=== PATIENT | female | born 1950 | race Caucasian/White ===

== ENCOUNTER 2016-07-30 12:13 | Emergency (ER) | payer MEDICARE, BC ==
[~2016-07-30] VITALS: Ht 144.8 cm; Wt 52.3 kg
[~2016-07-30 12:13] MED LIST: ATENOLOL50 MG PO; BUSPAR DIVIDOSE15 MG PO; CARISOPRODOL350 MG PO; ELAVIL150 MG PO; ELAVIL50 MG PO; HYDROCODONE/APAP; PERCOCET 325 MG1 TA2 PO; PHENERGAN 25 TA25 MG PO; RESTORIL30 MG PO; SOMA 350MG350 MG/TAB PO; TEMAZEPAM; TRIAMTERENE/HCT1 CAP PO; TYLENOL W/COD1 UDTAB PO; XANAX .25M0.25 MG/TA PO; XANAX XR0.5 MG PO; ZOLOFT50 MG PO
[2016-07-30 12:24] VITALS: BP 103/40; TEMP 98.3
[2016-07-30 13:55] VITALS: PULSE 56
[2016-07-31] MEDS ORDERED: XANAX 0.5MG0.5 MG PO (00:38)
[2016-07-31] MEDS ORDERED: NORVASC 10MG10 MG PO (00:39)
[2016-07-31] MEDS ORDERED: TENORMIN 5050 MG/TAB PO (00:39)
[2016-07-31] MEDS ORDERED: LEXAPRO 10MG10 MG PO (00:39)
[2016-07-31] MEDS ORDERED: QUESTRAN4 GM/9 GM PO (00:39)
[2016-07-31] MEDS ORDERED: PRILOSEC 20MG20 MG PO (00:40)
[2016-07-31] MEDS ORDERED: ROXICODONE 55 MG/TAB PO (00:40)
[2016-07-31] MEDS ORDERED: MIRALAX PA17 GM/Dose PO (00:40)
[2016-07-31] MEDS ORDERED: ZANAFLEX 4MG TAB4 MG PO (00:40)
[2016-07-31] MEDS ORDERED: DYAZIDE 25 MG-31 CAP PO (00:41)
[2016-07-31] MEDS ORDERED: DESYREL DIVIDO150 M1 PO (00:41)
[2016-07-31] MEDS ORDERED: MS CONTIN 115 MG/TAB PO (00:42)
[2016-07-31] MEDS ORDERED: LASIX 40MG TABL40 MG PO (10:16)
== END 2016-07-30 13:55 | disposition home or self-care (01) ==
LOC: COL.ER 12:13
DX: G89.29 Other chronic pain (principal); R10.84 Generalized abdominal pain
CPT/HCPCS: J2550; J3010

== ENCOUNTER 2016-07-30 23:31 | Inpatient (IN) | payer MEDICARE, BC ==
[~2016-07-30] VITALS: Ht 152.4 cm; Wt 54.0 kg
[2016-07-31] MEDS ORDERED: XANAX 0.5MG0.5 MG PO (00:38)
[2016-07-31] MEDS ORDERED: NORVASC 10MG10 MG PO (00:39)
[2016-07-31] MEDS ORDERED: LEXAPRO 10MG10 MG PO (00:39)
[2016-07-31] MEDS ORDERED: TENORMIN 5050 MG/TAB PO (00:39)
[2016-07-31] MEDS ORDERED: QUESTRAN4 GM/9 GM PO (00:39)
[2016-07-31] MEDS ORDERED: ZANAFLEX 4MG TAB4 MG PO (00:40)
[2016-07-31] MEDS ORDERED: MIRALAX PA17 GM/Dose PO (00:40)
[2016-07-31] MEDS ORDERED: ROXICODONE 55 MG/TAB PO (00:40)
[2016-07-31] MEDS ORDERED: PRILOSEC 20MG20 MG PO (00:40)
[2016-07-31] MEDS ORDERED: DESYREL DIVIDO150 M1 PO (00:41)
[2016-07-31] MEDS ORDERED: DYAZIDE 25 MG-31 CAP PO (00:41)
[2016-07-31] MEDS ORDERED: MS CONTIN 115 MG/TAB PO (00:42)
[2016-07-31 00:44] LABS: MEAN CELL VOLUME 86 fl (80.0-100.0); MEAN CORPUSCULAR HGB CONC 34 g/dl (33.0-37.0); MEAN PLATELET VOLUME 9.5 fl (7.4-10.4); PLATELET COUNT 91 K/mm3 (130-400); RED BLOOD COUNT 3.41 M/mm3 (4.10-5.30); REDCELL DISTRIBUTION WIDTH-CV 13.8 % (11.5-14.5); WHITE BLOOD COUNT 11.1 K/mm3 (4.8-10.8)
[2016-07-31 00:47] LABS: ADD PATHOLOGY DIFF REVIEW NO; HEMATOCRIT 29.4 % (37.0-47.0); HEMOGLOBIN 10.1 g/dl (12.5-16.0); MEAN CORPUSCULAR HEMOGLOBIN 30 pg (27.0-31.0)
[2016-07-31 00:56] LABS: ADJUSTED CALCIUM 7.4 mg/dL (8.4-10.2); ALBUMIN 4.6 gm/dL (3.5-5.0); BILIRUBIN,TOTAL 0.7 mg/dL (0.0-1.0); CALCIUM 7.9 mg/dL (8.4-10.2); CREATININE, serum 3.38 mg/dL (0.52-1.25); TOTAL PROTEIN 8.9 gm/dL (6.4-8.2)
[2016-07-31 00:59] LABS: POTASSIUM 2.4 mmol/L (3.4-5.0)
[2016-07-31 01:17] LABS: BAND 9 % (0-10); NEUTROPHILS 83 % (42.0-75.2); TOTAL CELLS COUNTED 100
[2016-07-31 01:26] LABS: MAGNESIUM 1.1 mg/dL (1.6-2.3)
[2016-07-31 01:49] LABS: PH 6 (5-8); SQUAMOUS EPITHELIAL 0-2 /hpf; URINE APPEARANCE Clear; URINE BACTERIA None Seen /hpf; URINE BILIRUBIN Negative (NEGATIVE); URINE BLOOD 2+ (NEGATIVE); URINE COLOR Straw; URINE GLUCOSE 3+ (NEGATIVE); URINE KETONE Negative (NEGATIVE); URINE RBC 0-2 /hpf; URINE UROBILINOGEN Negative (NEGATIVE); URINE WBC 0-2 /hpf
[2016-07-31 03:39] VITALS: BP 157/62; PULSE 78; TEMP 97.9
[2016-07-31 07:40] VITALS: BP 161/73; PULSE 79; TEMP 98.8
[2016-07-31] MEDS ORDERED: LASIX 40MG TABL40 MG PO (10:16)
[2016-07-31 11:57] VITALS: BP 156/61; PULSE 64; TEMP 98.3
[2016-07-31 13:19] LABS: BASO % 0.1 % (0.0-2.0); EOS % 0.1 % (0-4.0); GRAN % 88.4 % (42.2-75.2); LYMPH # 0.5 (1.2-3.4); LYMPH % 7.4 % (20.0-51.0); MEAN CELL VOLUME 87 fl (80.0-100.0); MEAN CORPUSCULAR HGB CONC 34 g/dl (33.0-37.0); MEAN PLATELET VOLUME 8.5 fl (7.4-10.4); MONO # 0.2 (0.1-0.6); MONO % 2.8 % (1.7-9.3); PLATELET COUNT 76 K/mm3 (130-400); RED BLOOD COUNT 3.53 M/mm3 (4.10-5.30); REDCELL DISTRIBUTION WIDTH-CV 13.9 % (11.5-14.5); WHITE BLOOD COUNT 6.8 K/mm3 (4.8-10.8)
[2016-07-31 13:20] LABS: HEMATOCRIT 30.8 % (37.0-47.0); HEMOGLOBIN 10.4 g/dl (12.5-16.0); MEAN CORPUSCULAR HEMOGLOBIN 29 pg (27.0-31.0)
[2016-07-31 13:28] LABS: CALCIUM 8.3 mg/dL (8.4-10.2); CREATININE, serum 2.89 mg/dL (0.52-1.25); POTASSIUM 3.4 mmol/L (3.4-5.0)
[2016-07-31 15:53] VITALS: BP 167/86; PULSE 75; TEMP 98.1
[2016-07-31 20:50] VITALS: BP 171/66; PULSE 70; TEMP 98
[2016-08-01 00:29] VITALS: BP 159/54; PULSE 68; TEMP 98
[2016-08-01 04:26] VITALS: BP 100/65; PULSE 88; TEMP 98.8
[2016-08-01 07:58] VITALS: BP 167/50; PULSE 72; TEMP 98.5
[2016-08-01 08:40] LABS: CALCIUM 9.2 mg/dL (8.4-10.2); CREATININE, serum 2.45 mg/dL (0.52-1.25); MAGNESIUM 2.2 mg/dL (1.6-2.3); POTASSIUM 3.8 mmol/L (3.4-5.0)
[2016-08-01 11:14] VITALS: BP 122/53; PULSE 63; TEMP 97.5
[2016-08-01 16:32] VITALS: BP 184/72; PULSE 76; TEMP 97.4
[2016-08-01 20:25] VITALS: BP 98/65; PULSE 89; TEMP 98.8
[2016-08-02] VITALS (11 sets, daily range): BP systolic 98–183; BP diastolic 55–84; PULSE 62–94; TEMP 97–98.9
[2016-08-02 07:28] LABS: MEAN CELL VOLUME 91 fl (80.0-100.0); MEAN CORPUSCULAR HGB CONC 33 g/dl (33.0-37.0); MEAN PLATELET VOLUME 9.4 fl (7.4-10.4); PLATELET COUNT 78 K/mm3 (130-400); RED BLOOD COUNT 2.53 M/mm3 (4.10-5.30); WHITE BLOOD COUNT 8.4 K/mm3 (4.8-10.8)
[2016-08-02 07:32] LABS: CALCIUM 8.9 mg/dL (8.4-10.2); CREATININE, serum 2.07 mg/dL (0.52-1.25); POTASSIUM 3.3 mmol/L (3.4-5.0)
[2016-08-02 07:34] LABS: ADD PATHOLOGY DIFF REVIEW NO; HEMATOCRIT 22.9 % (37.0-47.0); HEMOGLOBIN 7.5 g/dl (12.5-16.0); MEAN CORPUSCULAR HEMOGLOBIN 30 pg (27.0-31.0)
[2016-08-02 08:00] LABS: BAND 4 % (0-10); METAMYELOCYTE 1 % (0-0); NEUTROPHILS 88 % (42.0-75.2); PLATELET ESTIMATE NORMAL (NORMAL); TOTAL CELLS COUNTED 100
[2016-08-02 09:34] LABS: MEAN CELL VOLUME 90 fl (80.0-100.0); MEAN CORPUSCULAR HGB CONC 33 g/dl (33.0-37.0); MEAN PLATELET VOLUME 8.9 fl (7.4-10.4); RED BLOOD COUNT 2.52 M/mm3 (4.10-5.30); REDCELL DISTRIBUTION WIDTH-CV 14.1 % (11.5-14.5); WHITE BLOOD COUNT 8.6 K/mm3 (4.8-10.8)
[2016-08-02 09:39] LABS: CALCIUM 8.9 mg/dL (8.4-10.2); CREATININE, serum 2.06 mg/dL (0.52-1.25); POTASSIUM 3.4 mmol/L (3.4-5.0)
[2016-08-02 09:43] LABS: HEMATOCRIT 22.7 % (37.0-47.0); HEMOGLOBIN 7.5 g/dl (12.5-16.0); MEAN CORPUSCULAR HEMOGLOBIN 30 pg (27.0-31.0); PLATELET COUNT 73 K/mm3 (130-400)
[2016-08-03] VITALS (9 sets, daily range): BP systolic 94–158; BP diastolic 39–92; PULSE 57–94; TEMP 97.4–99
[2016-08-03 08:50] LABS: MEAN CELL VOLUME 89 fl (80.0-100.0); MEAN CORPUSCULAR HGB CONC 33 g/dl (33.0-37.0); MEAN PLATELET VOLUME 9.8 fl (7.4-10.4); RED BLOOD COUNT 2.78 M/mm3 (4.10-5.30); REDCELL DISTRIBUTION WIDTH-CV 14.7 % (11.5-14.5); WHITE BLOOD COUNT 7.6 K/mm3 (4.8-10.8)
[2016-08-03 08:55] LABS: HEMATOCRIT 24.6 % (37.0-47.0); HEMOGLOBIN 8.1 g/dl (12.5-16.0); MEAN CORPUSCULAR HEMOGLOBIN 29 pg (27.0-31.0); PLATELET COUNT 67 K/mm3 (130-400)
[2016-08-03 08:56] LABS: ADD PATHOLOGY DIFF REVIEW NO
[2016-08-03 09:23] LABS: BAND 3 % (0-10); NEUTROPHILS 86 % (42.0-75.2); PLATELET ESTIMATE DECREASED (NORMAL); TOTAL CELLS COUNTED 100
[2016-08-03 09:24] LABS: ANISOCYTOSIS 1+; HYPOCHROMIA 1+
[2016-08-03 09:35] LABS: CALCIUM 8.3 mg/dL (8.4-10.2); CREATININE, serum 2.01 mg/dL (0.52-1.25); MAGNESIUM 1.2 mg/dL (1.6-2.3); POTASSIUM 3.2 mmol/L (3.4-5.0)
[2016-08-04] VITALS (13 sets, daily range): BP systolic 110–174; BP diastolic 48–82; PULSE 60–80; TEMP 97.4–99.1
[2016-08-04 09:25] LABS: MEAN CELL VOLUME 89 fl (80.0-100.0); MEAN CORPUSCULAR HGB CONC 34 g/dl (33.0-37.0); MEAN PLATELET VOLUME 10.2 fl (7.4-10.4); RED BLOOD COUNT 2.09 M/mm3 (4.10-5.30); REDCELL DISTRIBUTION WIDTH-CV 15.2 % (11.5-14.5); WHITE BLOOD COUNT 6.7 K/mm3 (4.8-10.8)
[2016-08-04 09:37] LABS: CALCIUM 7.5 mg/dL (8.4-10.2); CREATININE, serum 2.24 mg/dL (0.52-1.25); HEMATOCRIT 18.5 % (37.0-47.0); HEMOGLOBIN 6.2 g/dl (12.5-16.0); MEAN CORPUSCULAR HEMOGLOBIN 30 pg (27.0-31.0); PLATELET COUNT 64 K/mm3 (130-400); POTASSIUM 3.9 mmol/L (3.4-5.0)
[2016-08-04 09:38] LABS: ADD PATHOLOGY DIFF REVIEW NO
[2016-08-04 09:57] LABS: BAND 2 % (0-10); METAMYELOCYTE 1 % (0-0); MYELOCYTE 1 % (0-0); NEUTROPHILS 93 % (42.0-75.2); PLATELET ESTIMATE DECREASED (NORMAL); TOTAL CELLS COUNTED 100
[2016-08-04 18:26] LABS: HEMOGLOBIN 9.4 g/dl (12.5-16.0)
[2016-08-05 00:26] VITALS: BP 115/75; PULSE 86
[2016-08-05 03:20] VITALS: BP 116/50; BP 145/57; PULSE 63; PULSE 70; TEMP 97.8; TEMP 98.4
[2016-08-05 07:04] LABS: BASO % 0.2 % (0.0-2.0); EOS % 0.3 % (0-4.0); GRAN # 4.8 (1.4-6.5); GRAN % 81.2 % (42.2-75.2); LYMPH # 0.7 (1.2-3.4); LYMPH % 11.8 % (20.0-51.0); MEAN CELL VOLUME 88 fl (80.0-100.0); MEAN CORPUSCULAR HGB CONC 33 g/dl (33.0-37.0); MEAN PLATELET VOLUME 9.6 fl (7.4-10.4); MONO # 0.3 (0.1-0.6); MONO % 5.1 % (1.7-9.3); RED BLOOD COUNT 3.23 M/mm3 (4.10-5.30); REDCELL DISTRIBUTION WIDTH-CV 16.2 % (11.5-14.5); WHITE BLOOD COUNT 5.9 K/mm3 (4.8-10.8)
[2016-08-05 07:08] LABS: HEMATOCRIT 28.3 % (37.0-47.0); HEMOGLOBIN 9.3 g/dl (12.5-16.0); MEAN CORPUSCULAR HEMOGLOBIN 29 pg (27.0-31.0); PLATELET COUNT 62 K/mm3 (130-400)
[2016-08-05 07:24] VITALS: BP 160/94; PULSE 67; TEMP 96.8
[2016-08-05 07:40] LABS: CALCIUM 7.5 mg/dL (8.4-10.2); CREATININE, serum 2.51 mg/dL (0.52-1.25); POTASSIUM 3.3 mmol/L (3.4-5.0)
[2016-08-05 11:30] VITALS: BP 117/55; PULSE 57; TEMP 97.6
[2016-08-05 16:40] VITALS: BP 151/85; PULSE 60; TEMP 99
[2016-08-05 20:03] VITALS: BP 125/89; PULSE 86; TEMP 99.2
[2016-08-05 21:53] LABS: PROT-CREAT RATIO, URINE 1.4 (())
[2016-08-06 00:08] VITALS: BP 127/71; PULSE 55; TEMP 99.3
[2016-08-06 03:20] VITALS: BP 152/58; PULSE 58; TEMP 99
[2016-08-06 07:15] LABS: BASO % 0.2 % (0.0-2.0); EOS # 0.1 (0.0-0.7); EOS % 1.6 % (0-4.0); GRAN # 3.2 (1.4-6.5); GRAN % 75.9 % (42.2-75.2); LYMPH # 0.7 (1.2-3.4); MEAN CELL VOLUME 86 fl (80.0-100.0); MEAN CORPUSCULAR HGB CONC 34 g/dl (33.0-37.0); MEAN PLATELET VOLUME 9.6 fl (7.4-10.4); MONO # 0.2 (0.1-0.6); MONO % 5.4 % (1.7-9.3); RED BLOOD COUNT 2.93 M/mm3 (4.10-5.30); WHITE BLOOD COUNT 4.3 K/mm3 (4.8-10.8)
[2016-08-06 07:17] LABS: HEMATOCRIT 25.2 % (37.0-47.0); HEMOGLOBIN 8.6 g/dl (12.5-16.0); MEAN CORPUSCULAR HEMOGLOBIN 29 pg (27.0-31.0); PLATELET COUNT 59 K/mm3 (130-400)
[2016-08-06 07:27] LABS: CALCIUM 6.7 mg/dL (8.4-10.2); CREATININE, serum 2.2 mg/dL (0.52-1.25)
[2016-08-06 07:30] VITALS: BP 156/73; PULSE 63; TEMP 99.1
[2016-08-06 08:02] LABS: POTASSIUM 2.9 mmol/L (3.4-5.0)
[2016-08-06 12:18] VITALS: BP 149/70; PULSE 57; TEMP 98.8
[2016-08-06 15:35] VITALS: BP 119/81; PULSE 64; TEMP 99.9
[2016-08-06 19:32] VITALS: BP 176/77; PULSE 66; TEMP 99.5
[2016-08-07 00:07] VITALS: BP 134/50; PULSE 75; TEMP 98.7
[2016-08-07 04:42] VITALS: BP 179/73; PULSE 63; TEMP 99.5
[2016-08-07 07:30] VITALS: BP 165/62; PULSE 64; TEMP 99.7
[2016-08-07 08:15] LABS: EOS # 0.1 (0.0-0.7); EOS % 2.3 % (0-4.0); GRAN # 3.3 (1.4-6.5); GRAN % 76.9 % (42.2-75.2); LYMPH # 0.6 (1.2-3.4); LYMPH % 14.7 % (20.0-51.0); MEAN CELL VOLUME 88 fl (80.0-100.0); MEAN CORPUSCULAR HGB CONC 33 g/dl (33.0-37.0); MEAN PLATELET VOLUME 9.8 fl (7.4-10.4); MONO # 0.2 (0.1-0.6); MONO % 5.4 % (1.7-9.3); RED BLOOD COUNT 2.97 M/mm3 (4.10-5.30); REDCELL DISTRIBUTION WIDTH-CV 16.6 % (11.5-14.5); WHITE BLOOD COUNT 4.3 K/mm3 (4.8-10.8)
[2016-08-07 08:18] LABS: HEMATOCRIT 26.1 % (37.0-47.0); HEMOGLOBIN 8.7 g/dl (12.5-16.0); MEAN CORPUSCULAR HEMOGLOBIN 29 pg (27.0-31.0); PLATELET COUNT 69 K/mm3 (130-400)
[2016-08-07 08:19] LABS: CALCIUM 6.1 mg/dL (8.4-10.2); CREATININE, serum 2.16 mg/dL (0.52-1.25); POTASSIUM 3.6 mmol/L (3.4-5.0)
[2016-08-07 12:25] VITALS: BP 116/65; PULSE 51; TEMP 98.4
[2016-08-07 16:10] VITALS: BP 140/65; PULSE 64; TEMP 97.3
[2016-08-07 21:34] VITALS: BP 90/50; PULSE 53; TEMP 98.9
[2016-08-08] VITALS (7 sets, daily range): BP systolic 87–168; BP diastolic 48–74; PULSE 58–117; TEMP 97.8–99.6
[2016-08-08 08:52] LABS: CREATININE, serum 2.19 mg/dL (0.52-1.25); MAGNESIUM 1.3 mg/dL (1.6-2.3); POTASSIUM 3.2 mmol/L (3.4-5.0)
[2016-08-09 01:47] VITALS: BP 94/52; PULSE 56; TEMP 97.7
[2016-08-09 05:45] VITALS: BP 131/58; PULSE 57; TEMP 98.6
[2016-08-09 07:46] VITALS: BP 155/65; PULSE 66; TEMP 98.4
[2016-08-09 08:48] LABS: CALCIUM 6.2 mg/dL (8.4-10.2); CREATININE, serum 2.19 mg/dL (0.52-1.25); POTASSIUM 3.1 mmol/L (3.4-5.0)
[2016-08-09 12:03] VITALS: BP 124/45; PULSE 54; TEMP 98.4
[2016-08-09] MEDS ORDERED: FLAGYL 250250 MG/TAB PO (13:29)
[2016-08-09] MEDS ORDERED: OYSCO 500500 M1 PO (13:33)
[2016-08-09] MEDS ORDERED: NATURE'S BLEN5000 IU PO (13:33)
[2016-08-09] MEDS ORDERED: OXYCONTIN 10MG10 MG PO (13:34)
[2016-08-09] MEDS ORDERED: K-DUR 10 MEQ T10 MEQ PO (13:38)
[2016-08-09 15:46] VITALS: BP 110/57; PULSE 60; TEMP 98
== END 2016-08-09 17:13 | disposition home or self-care (01) | DRG 372 ==
LOC: COL.ER 23:31 → MEDICAL 07-31 02:53
PROVIDERS: Family Medicine; Internal Medicine; Internal Medicine Gastroenterology; Physician Assistant
PROC: 0DJD8ZZ Inspection of Lower Intestinal Tract, Via Natural or Artificial Opening Endoscopic (ICD-10-PCS; principal; 2016-08-02 16:00)
PROC: 0DJ08ZZ Inspection of Upper Intestinal Tract, Via Natural or Artificial Opening Endoscopic (ICD-10-PCS; 2016-08-02 16:00)
DX: A04.7 Enterocolitis due to Clostridium difficile (principal); N18.4 Chronic kidney disease, stage 4 (severe); N17.9 Acute kidney failure, unspecified; E87.0 Hyperosmolality and hypernatremia; E87.2 Acidosis; D62 Acute posthemorrhagic anemia; K76.6 Portal hypertension; K92.1 Melena; E87.6 Hypokalemia; E83.42 Hypomagnesemia; I12.9 Hypertensive chronic kidney disease with stage 1 through stage 4 chronic kidney disease, or unspecified chronic kidney disease; E11.65 Type 2 diabetes mellitus with hyperglycemia; E11.22 Type 2 diabetes mellitus with diabetic chronic kidney disease; F41.8 Other specified anxiety disorders; G89.29 Other chronic pain; K75.81 Nonalcoholic steatohepatitis (NASH); K70.31 Alcoholic cirrhosis of liver with ascites; D69.6 Thrombocytopenia, unspecified
CPT/HCPCS: 99223-AI; 99232-AI; 99233-AI; C9113; J0595; J1170; J1815; J2060; J2250; J2405; J2550; J3010; J3475; J3480; J7030; J7040; J7050; J7070; P9016

== ENCOUNTER 2016-08-15 17:32 | Inpatient (IN) | payer MEDICARE, BC ==
[~2016-08-15] VITALS: Ht 144.8 cm; Wt 55.5 kg
[~2016-08-15 17:32] MED LIST changes: +DESYREL DIVIDO150 M1 PO; +DYAZIDE 25 MG-31 CAP PO; +FLAGYL 250250 MG/TAB PO; +K-DUR 10 MEQ T10 MEQ PO; +LASIX 40MG TABL40 MG PO; +LEXAPRO 10MG10 MG PO; +MIRALAX PA17 GM/Dose PO; +MS CONTIN 115 MG/TAB PO; +NATURE'S BLEN5000 IU PO; +NORVASC 10MG10 MG PO; +OXYCONTIN 10MG10 MG PO; +OYSCO 500500 M1 PO; +PRILOSEC 20MG20 MG PO; +QUESTRAN4 GM/9 GM PO; +ROXICODONE 55 MG/TAB PO; +TENORMIN 5050 MG/TAB PO; +XANAX 0.5MG0.5 MG PO; +ZANAFLEX 4MG TAB4 MG PO
[2016-08-15 18:50] LABS: BASO % 0.3 % (0.0-2.0); EOS % 0.4 % (0-4.0); GRAN # 8.2 (1.4-6.5); GRAN % 86.4 % (42.2-75.2); LYMPH # 0.7 (1.2-3.4); LYMPH % 7.8 % (20.0-51.0); MEAN CELL VOLUME 90 fl (80.0-100.0); MEAN CORPUSCULAR HGB CONC 32 g/dl (33.0-37.0); MEAN PLATELET VOLUME 10.1 fl (7.4-10.4); MONO # 0.4 (0.1-0.6); MONO % 4.3 % (1.7-9.3); PLATELET COUNT 110 K/mm3 (130-400); RED BLOOD COUNT 3.53 M/mm3 (4.10-5.30); REDCELL DISTRIBUTION WIDTH-CV 16.6 % (11.5-14.5); WHITE BLOOD COUNT 9.5 K/mm3 (4.8-10.8)
[2016-08-15 18:53] LABS: HEMATOCRIT 31.9 % (37.0-47.0); HEMOGLOBIN 10.2 g/dl (12.5-16.0); MEAN CORPUSCULAR HEMOGLOBIN 29 pg (27.0-31.0)
[2016-08-15 19:19] LABS: ADJUSTED CALCIUM 7.3 mg/dL (8.4-10.2); ALBUMIN 3.7 gm/dL (3.5-5.0); CALCIUM 7.1 mg/dL (8.4-10.2); CREATININE, serum 2.24 mg/dL (0.52-1.25); POTASSIUM 3.2 mmol/L (3.4-5.0); TOTAL PROTEIN 7.3 gm/dL (6.4-8.2)
[2016-08-15 21:47] VITALS: BP 148/91; PULSE 95; TEMP 98.2
[2016-08-15 23:12] LABS: MAGNESIUM 0.7 mg/dL (1.6-2.3)
[2016-08-16 00:52] VITALS: BP 127/73; PULSE 92; TEMP 97.1
[2016-08-16 04:37] VITALS: BP 156/92; PULSE 92; TEMP 98.2
[2016-08-16 07:42] LABS: INR 1.4 (0.8-3.0); PROTHROMBIN TIME 15.8 SECONDS (9.7-12.8)
[2016-08-16 07:45] LABS: PARTIAL THROMBOPLASTIN TIME 32.7 SECONDS (26.0-37.0)
[2016-08-16 07:58] LABS: CREATININE, serum 2.05 mg/dL (0.52-1.25); MAGNESIUM 1.7 mg/dL (1.6-2.3); POTASSIUM 3.7 mmol/L (3.4-5.0)
[2016-08-16 08:08] VITALS: BP 145/81; PULSE 83; TEMP 98.7
[2016-08-16 11:16] LABS: ARTERIAL BLD GAS O2 SATURATION 91.3 % (92-100); ARTERIAL BLD GAS TCO2 CT 17.8; ARTERIAL BLOOD GAS BASE EXCESS -7.5 (-2-2); ARTERIAL BLOOD GAS HCO3 16.9 meq/L (22-26); ARTERIAL BLOOD GAS PHT 7.36 C (7.35-7.45); ARTERIAL BLOOD GAS PO2 62.4 mmHg (80-100); ARTERIAL BLOOD GAS PO2T 62.4 (80-100); ARTERIAL BLOOD GAS pH 7.36 (7.35-7.45); OXYHEMOGLOBIN 90.4 %
[2016-08-16 11:17] LABS: ALLEN TEST YES; ALLENS TEST RESULT PASS; ATS? YES
[2016-08-16 13:32] LABS: PERITONEAL -POLYMORPHONUCLEAR 6.4 % (0-25); PERITONEAL FLUID RBC 2000 /mm3 (0-0)
[2016-08-16 15:44] VITALS: BP 144/76; PULSE 80; TEMP 98.7
[2016-08-16 20:02] VITALS: BP 111/74; PULSE 75; TEMP 98.7
[2016-08-16 23:53] VITALS: BP 124/68; PULSE 82; TEMP 98
[2016-08-17 03:39] VITALS: BP 143/81; PULSE 86; TEMP 98.7
[2016-08-17 09:19] VITALS: BP 145/67; PULSE 83; TEMP 98.4
[2016-08-17 10:08] LABS: CALCIUM 7.2 mg/dL (8.4-10.2); CREATININE, serum 2.03 mg/dL (0.52-1.25); MAGNESIUM 1.5 mg/dL (1.6-2.3); POTASSIUM 3.7 mmol/L (3.4-5.0)
[2016-08-17 11:51] VITALS: BP 117/54; PULSE 71; TEMP 98.6
[2016-08-17 16:21] VITALS: BP 136/75; PULSE 83; TEMP 99
[2016-08-17 19:48] VITALS: BP 105/44; PULSE 83; TEMP 99.1
[2016-08-17 23:44] VITALS: BP 133/73; PULSE 78; TEMP 98.2
[2016-08-18 03:27] VITALS: BP 140/81; PULSE 77; TEMP 99
[2016-08-18 07:58] VITALS: BP 142/72; PULSE 89; TEMP 98.2
[2016-08-18 09:38] LABS: BASO % 0.3 % (0.0-2.0); EOS % 0.8 % (0-4.0); GRAN # 2.7 (1.4-6.5); GRAN % 75.9 % (42.2-75.2); LYMPH # 0.6 (1.2-3.4); LYMPH % 17.7 % (20.0-51.0); MEAN CELL VOLUME 93 fl (80.0-100.0); MEAN CORPUSCULAR HGB CONC 31 g/dl (33.0-37.0); MEAN PLATELET VOLUME 9.6 fl (7.4-10.4); MONO # 0.2 (0.1-0.6); MONO % 4.7 % (1.7-9.3); RED BLOOD COUNT 2.93 M/mm3 (4.10-5.30); REDCELL DISTRIBUTION WIDTH-CV 16.6 % (11.5-14.5); WHITE BLOOD COUNT 3.6 K/mm3 (4.8-10.8)
[2016-08-18 09:39] LABS: HEMATOCRIT 27.2 % (37.0-47.0); HEMOGLOBIN 8.4 g/dl (12.5-16.0); MEAN CORPUSCULAR HEMOGLOBIN 29 pg (27.0-31.0); PLATELET COUNT 51 K/mm3 (130-400)
[2016-08-18 09:47] LABS: CALCIUM 7.4 mg/dL (8.4-10.2); CREATININE, serum 2.22 mg/dL (0.52-1.25); MAGNESIUM 1.4 mg/dL (1.6-2.3); POTASSIUM 3.3 mmol/L (3.4-5.0)
[2016-08-18 11:29] VITALS: BP 128/60; PULSE 74; TEMP 98
[2016-08-18 15:16] VITALS: BP 132/58; PULSE 77; TEMP 98.4
[2016-08-18 19:31] VITALS: BP 123/55; PULSE 88; TEMP 98.4
[2016-08-18 23:29] VITALS: BP 121/44; PULSE 83; TEMP 98.3
[2016-08-19 03:48] VITALS: BP 119/51; PULSE 77; TEMP 98.4
[2016-08-19 07:50] LABS: BASO % 0.3 % (0.0-2.0); EOS # 0.1 (0.0-0.7); EOS % 2.1 % (0-4.0); GRAN # 2.1 (1.4-6.5); GRAN % 71.9 % (42.2-75.2); LYMPH # 0.6 (1.2-3.4); LYMPH % 19.1 % (20.0-51.0); MEAN CELL VOLUME 95 fl (80.0-100.0); MEAN CORPUSCULAR HGB CONC 31 g/dl (33.0-37.0); MEAN PLATELET VOLUME 10.7 fl (7.4-10.4); MONO # 0.2 (0.1-0.6); MONO % 5.9 % (1.7-9.3); REDCELL DISTRIBUTION WIDTH-CV 16.7 % (11.5-14.5); WHITE BLOOD COUNT 2.9 K/mm3 (4.8-10.8)
[2016-08-19 08:03] VITALS: BP 128/57; PULSE 71; TEMP 97.9
[2016-08-19 08:46] LABS: CALCIUM 8.2 mg/dL (8.4-10.2); CREATININE, serum 2.24 mg/dL (0.52-1.25); HEMATOCRIT 25.6 % (37.0-47.0); HEMOGLOBIN 7.9 g/dl (12.5-16.0); MEAN CORPUSCULAR HEMOGLOBIN 29 pg (27.0-31.0); PLATELET COUNT 62 K/mm3 (130-400); POTASSIUM 3.7 mmol/L (3.4-5.0)
[2016-08-19 11:28] VITALS: BP 123/58; PULSE 67; TEMP 98.7
[2016-08-19] MEDS ORDERED: SODIUM BICARBO650 MG PO (12:37)
[2016-08-19] MEDS ORDERED: CALCITRIOL PO (12:37)
[2016-08-19] MEDS ORDERED: OXYCONTIN 20MG20 MG PO (12:44)
[2016-08-19] MEDS ORDERED: DILAUDID 2MG TAB2 MG PO (12:44)
[2016-08-19 13:31] LABS: MAGNESIUM 1.5 mg/dL (1.6-2.3)
[2016-08-19 15:48] VITALS: BP 125/76; PULSE 82; TEMP 98.6
== END 2016-08-19 15:09 | disposition home or self-care (01) | DRG 442 ==
LOC: COL.ER 17:32 → MEDICAL 19:47
PROVIDERS: Family Medicine; Internal Medicine; Nurse Practitioner Family
PROC: 0W9G3ZX Drainage of Peritoneal Cavity, Percutaneous Approach, Diagnostic (ICD-10-PCS; principal; 2016-08-16)
DX: K75.81 Nonalcoholic steatohepatitis (NASH) (principal); K76.6 Portal hypertension; R18.8 Other ascites; E87.2 Acidosis; N18.4 Chronic kidney disease, stage 4 (severe); K74.69 Other cirrhosis of liver; I12.9 Hypertensive chronic kidney disease with stage 1 through stage 4 chronic kidney disease, or unspecified chronic kidney disease; E11.22 Type 2 diabetes mellitus with diabetic chronic kidney disease; D69.6 Thrombocytopenia, unspecified; D64.9 Anemia, unspecified; E83.42 Hypomagnesemia
CPT/HCPCS: 99223-AI; 99232-AI; 99239; J0610; J1170; J1644; J2405; J2550; J3475; J3480; J7030

== ENCOUNTER → 2016-09-19 | Outpatient (CLI) | payer MEDICARE, BC ==
[~2016-09-19] MED LIST changes: +ALDACTONE 25MG25 M1 PO; +BIAXIN XL 500M500 MG PO; +CALCITRIOL PO; +DILAUDID 2MG TAB2 MG PO; +OXYCONTIN 20MG20 MG PO; +SLOW-MAG 6464 MG/TAB PO; +SODIUM BICARBO650 MG PO; +ZAROXOLYN 2.52.5 MG PO
== END ==
LOC: COL.RAD 12:45
DX: K74.69 Other cirrhosis of liver (principal); R16.1 Splenomegaly, not elsewhere classified; N26.1 Atrophy of kidney (terminal); N28.1 Cyst of kidney, acquired

== ENCOUNTER 2017-02-08 22:50 | Emergency (ER) | payer MEDICARE, BC ==
[~2017-02-08] VITALS: Ht 144.8 cm; Wt 56.8 kg
[~2017-02-08 22:50] MED LIST changes: -ALDACTONE 25MG25 M1 PO; -BIAXIN XL 500M500 MG PO; -SLOW-MAG 6464 MG/TAB PO; -ZAROXOLYN 2.52.5 MG PO
[2017-02-08 22:53] VITALS: TEMP 98.1
[2017-02-08] MEDS ORDERED: BIAXIN XL 500M500 MG PO (23:11)
[2017-02-08] MEDS ORDERED: QUESTRAN4 GM/9 GM PO (23:18)
[2017-02-08] MEDS ORDERED: SLOW-MAG 6464 MG/TAB PO (23:19)
[2017-02-08] MEDS ORDERED: ZAROXOLYN 2.52.5 MG PO (23:20)
[2017-02-08] MEDS ORDERED: ALDACTONE 25MG25 M1 PO (23:20)
[2017-02-08 23:48] LABS: PH 5 (5-8); SQUAMOUS EPITHELIAL 0-2 /hpf; URINE APPEARANCE Clear; URINE BACTERIA None Seen /hpf; URINE BILIRUBIN Negative (NEGATIVE); URINE BLOOD Negative (NEGATIVE); URINE COLOR Straw; URINE GLUCOSE Negative (NEGATIVE); URINE KETONE Negative (NEGATIVE); URINE RBC 0-2 /hpf; URINE UROBILINOGEN Negative (NEGATIVE)
[2017-02-09 00:08] LABS: BASO % 0.3 % (0.0-2.0); EOS # 0.1 (0.0-0.7); EOS % 2.1 % (0-4.0); GRAN # 4.7 (1.4-6.5); GRAN % 76.6 % (42.2-75.2); LYMPH # 0.8 (1.2-3.4); LYMPH % 12.8 % (20.0-51.0); MEAN CELL VOLUME 87 fl (80.0-100.0); MEAN CORPUSCULAR HGB CONC 33 g/dl (33.0-37.0); MEAN PLATELET VOLUME 8.9 fl (7.4-10.4); MONO # 0.5 (0.1-0.6); MONO % 7.4 % (1.7-9.3); RED BLOOD COUNT 3.07 M/mm3 (4.10-5.30); REDCELL DISTRIBUTION WIDTH-CV 16.9 % (11.5-14.5); WHITE BLOOD COUNT 6.1 K/mm3 (4.8-10.8)
[2017-02-09 00:11] LABS: HEMATOCRIT 26.8 % (37.0-47.0); HEMOGLOBIN 8.8 g/dl (12.5-16.0); MEAN CORPUSCULAR HEMOGLOBIN 29 pg (27.0-31.0)
[2017-02-09 00:16] LABS: CALCIUM 9.2 mg/dL (8.4-10.2); CREATININE, serum 3.39 mg/dL (0.52-1.25); POTASSIUM 3.4 mmol/L (3.4-5.0)
[2017-02-09 00:39] LABS: PLATELET COUNT 46 K/mm3 (130-400)
[2017-02-09 01:23] VITALS: BP 124/84; PULSE 68
== END 2017-02-09 01:24 | disposition home or self-care (01) ==
LOC: COL.ER 22:50
PROVIDERS: Emergency Medicine
DX: J20.8 Acute bronchitis due to other specified organisms (principal); R23.8 Other skin changes; T36.3X5A Adverse effect of macrolides, initial encounter; F41.9 Anxiety disorder, unspecified; F32.9 Major depressive disorder, single episode, unspecified; I12.9 Hypertensive chronic kidney disease with stage 1 through stage 4 chronic kidney disease, or unspecified chronic kidney disease; N18.2 Chronic kidney disease, stage 2 (mild); Z87.891 Personal history of nicotine dependence
CPT/HCPCS: J7030

== ENCOUNTER 2017-08-04 11:25 | Inpatient (IN) | payer MEDICARE, BC ==
[~2017-08-04] VITALS: Ht 144.8 cm; Wt 62.5 kg
[~2017-08-04 11:25] MED LIST changes: +ALDACTONE 25MG25 M1 PO; +BIAXIN XL 500M500 MG PO; +SLOW-MAG 6464 MG/TAB PO; +ZAROXOLYN 2.52.5 MG PO
[2017-08-04 13:07] LABS: BASO % 0.3 % (0.0-2.0); EOS % 0.2 % (0-4.0); GRAN % 84.8 % (42.2-75.2); LYMPH # 0.7 (1.2-3.4); LYMPH % 11.1 % (20.0-51.0); MEAN CELL VOLUME 88 fl (80.0-100.0); MEAN CORPUSCULAR HGB CONC 33 g/dl (33.0-37.0); MEAN PLATELET VOLUME 9.2 fl (7.4-10.4); MONO # 0.2 (0.1-0.6); MONO % 3.1 % (1.7-9.3); PLATELET COUNT 62 K/mm3 (130-400); RED BLOOD COUNT 3.61 M/mm3 (4.10-5.30); REDCELL DISTRIBUTION WIDTH-CV 15.4 % (11.5-14.5)
[2017-08-04 13:09] LABS: HEMATOCRIT 31.9 % (37.0-47.0); HEMOGLOBIN 10.5 g/dl (12.5-16.0); MEAN CORPUSCULAR HEMOGLOBIN 29 pg (27.0-31.0)
[2017-08-04 13:13] LABS: ALANINE AMINOTRANSFERASE 23 U/L (9-52); ALBUMIN 4.8 gm/dL (3.5-5.0); ALKALINE PHOSPHATASE 62 U/L (50-136); ANION GAP 13 mmol/L (7-16); AST,SGOT 18 U/L (15-37); BILIRUBIN,TOTAL 0.9 mg/dL (0.0-1.0); BLOOD UREA NITROGEN 32 mg/dL (7-17); CALCIUM 8.7 mg/dL (8.4-10.2); CARBON DIOXIDE 23 mmol/L (22-30); CHLORIDE 106 mmol/L (98-107); CREATININE, serum 2.58 mg/dL (0.52-1.25); GLUCOSE 150 mg/dL (74-106); LIPASE 81 U/L (23-300); POTASSIUM 3.6 mmol/L (3.4-5.0); SODIUM 141 mmol/L (137-145); TOTAL PROTEIN 8.4 gm/dL (6.4-8.2)
[2017-08-04 13:33] LABS: INFLUENZA A NEGATIVE; INFLUENZA B NEGATIVE
[2017-08-04 13:33] LABS: C-REACTIVE PROTEIN < 0.5 mg/dL (0.0-0.9)
[2017-08-04 13:45] LABS: INR 1.2 (0.8-3.0)
[2017-08-04 16:06] VITALS: BP 160/53; PULSE 50; TEMP 98
[2017-08-04] MEDS ORDERED: K-DUR 10 MEQ T10 MEQ PO (16:11)
[2017-08-04] MEDS ORDERED: DEMADEX 20MG20 M1 PO (16:13)
[2017-08-04] MEDS ORDERED: ALDACTONE 25MG25 M1 PO (16:13)
[2017-08-04 19:34] VITALS: BP 118/48; PULSE 69; TEMP 98.6
[2017-08-04 23:10] VITALS: BP 135/52; PULSE 53; TEMP 97.8
[2017-08-05 03:58] VITALS: BP 166/60; PULSE 53; TEMP 98.1
[2017-08-05 06:55] LABS: BASO % 0.6 % (0.0-2.0); EOS # 0.1 (0.0-0.7); EOS % 1.8 % (0-4.0); GRAN # 3.6 (1.4-6.5); GRAN % 72.9 % (42.2-75.2); LYMPH % 19.8 % (20.0-51.0); MEAN CELL VOLUME 91 fl (80.0-100.0); MEAN CORPUSCULAR HGB CONC 32 g/dl (33.0-37.0); MEAN PLATELET VOLUME 9.7 fl (7.4-10.4); MONO # 0.2 (0.1-0.6); MONO % 4.5 % (1.7-9.3); PLATELET COUNT 57 K/mm3 (130-400); RED BLOOD COUNT 3.06 M/mm3 (4.10-5.30); REDCELL DISTRIBUTION WIDTH-CV 15.9 % (11.5-14.5)
[2017-08-05 07:07] LABS: ALBUMIN 3.7 gm/dL (3.5-5.0); BILIRUBIN,TOTAL 0.5 mg/dL (0.0-1.0); CALCIUM 8.1 mg/dL (8.4-10.2); CREATININE, serum 2.78 mg/dL (0.52-1.25); POTASSIUM 3.6 mmol/L (3.4-5.0); TOTAL PROTEIN 6.9 gm/dL (6.4-8.2)
[2017-08-05 07:08] LABS: HEMATOCRIT 27.8 % (37.0-47.0); MEAN CORPUSCULAR HEMOGLOBIN 29 pg (27.0-31.0)
[2017-08-05 07:46] VITALS: BP 159/58; PULSE 57; TEMP 97.8
[2017-08-05 12:52] VITALS: BP 177/62; PULSE 90; TEMP 98
[2017-08-05 15:35] VITALS: BP 120/44; PULSE 58; TEMP 98.3
[2017-08-05 21:27] VITALS: BP 104/36; PULSE 51; TEMP 98.2
[2017-08-06 00:03] VITALS: BP 118/41; PULSE 50; TEMP 97.8
[2017-08-06 04:54] VITALS: BP 153/52; PULSE 57; TEMP 98.3
[2017-08-06 06:20] LABS: COLLECTION METHOD CLEAN CATCH
[2017-08-06 06:35] LABS: MUCOUS Present /lpf; PH 5 (5-8); SQUAMOUS EPITHELIAL 0-2 /hpf; URINE APPEARANCE Cloudy; URINE BACTERIA Many /hpf; URINE BILIRUBIN Negative (NEGATIVE); URINE BLOOD 1+ (NEGATIVE); URINE COLOR Yellow; URINE GLUCOSE Negative (NEGATIVE); URINE KETONE Negative (NEGATIVE); URINE LEUKOCYTE ESTERASE 3+ (NEGATIVE); URINE NITRATE Negative (NEGATIVE); URINE PROTEIN(semi-quant) 2+ (NEGATIVE); URINE UROBILINOGEN Negative (NEGATIVE); URINE WBC >50 /hpf
[2017-08-06 06:36] LABS: ALBUMIN 3.8 gm/dL (3.5-5.0); BILIRUBIN,TOTAL 0.5 mg/dL (0.0-1.0); CALCIUM 8.3 mg/dL (8.4-10.2); POTASSIUM 3.3 mmol/L (3.4-5.0)
[2017-08-06 06:49] LABS: BASO % 0.3 % (0.0-2.0); EOS # 0.1 (0.0-0.7); EOS % 2.6 % (0-4.0); GRAN # 2.8 (1.4-6.5); GRAN % 72.2 % (42.2-75.2); LYMPH # 0.8 (1.2-3.4); MEAN CELL VOLUME 89 fl (80.0-100.0); MEAN CORPUSCULAR HGB CONC 33 g/dl (33.0-37.0); MEAN PLATELET VOLUME 9.5 fl (7.4-10.4); MONO # 0.2 (0.1-0.6); MONO % 4.4 % (1.7-9.3); RED BLOOD COUNT 3.09 M/mm3 (4.10-5.30); REDCELL DISTRIBUTION WIDTH-CV 15.5 % (11.5-14.5)
[2017-08-06 07:04] LABS: HEMATOCRIT 27.6 % (37.0-47.0); HEMOGLOBIN 9.1 g/dl (12.5-16.0); MEAN CORPUSCULAR HEMOGLOBIN 29 pg (27.0-31.0); PLATELET COUNT 49 K/mm3 (130-400)
[2017-08-06 07:48] VITALS: BP 137/45; PULSE 58; TEMP 98.3
[2017-08-06] MEDS ORDERED: CEFTIN 250250 MG/TAB PO (09:10)
[2017-08-06] MEDS ORDERED: DEMADEX 20MG20 M1 PO ×2 (09:14)
[2017-08-06] MEDS ORDERED: K-DUR 10 MEQ T10 MEQ PO ×2 (09:17)
[2017-08-06] MEDS ORDERED: DEMADEX10 MG PO (09:41)
[2017-08-06 12:08] VITALS: BP 136/44; PULSE 48; TEMP 98
== END 2017-08-06 15:40 | disposition home or self-care (01) | DRG 291 ==
LOC: COL.ER 11:25 → MEDICAL 13:36 → COL.ER 13:36 → MEDICAL 08-06 15:40
PROVIDERS: Family Medicine; Internal Medicine; Internal Medicine Nephrology; Nurse Practitioner Family
DX: I13.0 Hypertensive heart and chronic kidney disease with heart failure and stage 1 through stage 4 chronic kidney disease, or unspecified chronic kidney disease (principal); I50.33 Acute on chronic diastolic (congestive) heart failure; N18.4 Chronic kidney disease, stage 4 (severe); R18.8 Other ascites; N17.9 Acute kidney failure, unspecified; K76.6 Portal hypertension; N39.0 Urinary tract infection, site not specified; K74.60 Unspecified cirrhosis of liver; Z87.891 Personal history of nicotine dependence; D63.1 Anemia in chronic kidney disease; E87.6 Hypokalemia; E83.42 Hypomagnesemia; D69.59 Other secondary thrombocytopenia
CPT/HCPCS: 99232-AI; 99239; J0696; J1170; J1940; J2405; J2550; J3475; J7030

== ENCOUNTER → 2017-11-03 | Outpatient (CLI) | payer MEDICARE, BC ==
[~2017-11-03] MED LIST changes: +CEFTIN 250250 MG/TAB PO; +DEMADEX 20MG20 M1 PO; +DEMADEX10 MG PO
== END ==
LOC: COL.VAS 09:44
DX: N18.4 Chronic kidney disease, stage 4 (severe) (principal)
CPT/HCPCS: G0365

== ENCOUNTER → 2018-01-28 | Outpatient (CLI) | payer MEDICARE, BC ==
[~2018-01-28] VITALS: Ht 144.8 cm; Wt 59.1 kg
[2018-01-28 11:59] VITALS: BP 131/48; PULSE 65
== END ==
LOC: COL.RAD 11:26
DX: R18.8 Other ascites (principal)

== ENCOUNTER → 2018-02-17 | Outpatient (CLI) | payer MEDICARE, BC | LOC: MHCPAIN 10:09 | DX: G89.29 Other chronic pain (principal); M79.1 Myalgia; M79.2 Neuralgia and neuritis, unspecified | CPT/HCPCS: G0463 ==